=== PATIENT | female | born 1950 | race Caucasian/White ===

== ENCOUNTER 2024-06-23 08:00 | Outpatient (CLI) | payer MEDICARE, OTHER ==
--- NOTE | 2024-06-26 22:11 | XRAY Report ---
PROCEDURE: Foot 3+V RT INDICATIONS: SPRAIN OF RIGHT FOOT TECHNIQUE: 3 views of the foot were acquired. COMPARISON: None. FINDINGS: Bones: No fractures or dislocations. No suspicious bony lesions. Prior arthrodesis of the first TM T joints with expected position of the distal fixation screw. Mild first MTP and diffuse interphalang eal joint space narrowing with particular osteophyte formation. Calcaneal enthesopathy. Soft tissues: No tibiotalar joint effusion. Achilles tendon appears normal. IMPRESSION: 1. Prior first TMT joint arthrodesis. 2. Prior medial bunionectomy. 3. 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 4. Calcaneal enthesopathy. Reviewed by: SADE Fermin on 06/26/2024 10:10 PM PDT Approved by: Alanna Gandhi MD on 06/26/2024 10:10 PM PDT Station ID: [id number]
== END 2024-06-23 23:59 | disposition home or self-care (01) ==
LOC: DI.S 08:00
PROVIDERS: ATTEND Emergency Medicine
DX: S93.621A Sprain of tarsometatarsal ligament of right foot, initial encounter (principal); M19.071 Primary osteoarthritis, right ankle and foot; M77.31 Calcaneal spur, right foot